=== PATIENT | female | born 1930 | race Caucasian/White ===

== ENCOUNTER 2017-01-30 06:08 | Inpatient (IN) | payer OTHER ==
[2017-01-22 12:09] VITALS: BMI 29.2
--- NOTE | 2017-01-23 11:08 | HP ---
[facility] - Chief Complaint Chief Complaint: left knee pain - Past Medical History Allergies/Adverse Reactions: Allergies Allergy/AdvReac Type Severity Reaction Status Date / Time levofloxacin [From Levaquin] Allergy Verified 01/22/17 11:59 penicillin G Allergy Verified 01/22/17 11:59 Cardiovascular: Yes: HTN Gastrointestinal: Yes: Constipation, Diverticulosis Hepatobiliary: Yes: Other (fatty liver) Renal/: Yes: Renal Inusuff Musculoskeletal: Yes: Chronic low back pain, Osteoarthritis - Current Medications Current Medications: Home Medications Medication Instructions Recorded Simvastatin [Zocor -] 20 mg PO HS 12/27/12 Acetaminophen [Tylenol] 325 mg PO PRN PRN 11/19/15 Benazepril HCl 5 mg PO DAILY 11/19/15 Omeprazole 20 mg PO DAILY PRN 11/19/15 Calcium Carbonate/Vitamin D3 1 each PO DAILY 01/22/17 [Calcium 600 + Vit D Tablet] Diclofenac Sodium 50 mg PO BID PRN 01/22/17 Satellite Physical Exam - Physical Examination General Appearance: Well Nourished, Well Developed, Alert & Oriented x3 ENT: Clear Lung: Normal air movement Heart: Regular rate & rhythm Extremities: Other (left knee- + swelling, + ttp ,decr rom, nvi xrays show severe tricompartmental djd) Neurological: Intact, Alert, Oriented Satellite Impression/Plan - Impression/Plan Impression: left knee djd Operative Procedure: left cindi tkr Date to be Performed: 01/30/17
[2017-01-30] MEDS ORDERED: SODIUM CHLORIDE 0.9% P/F 10 ML VIAL IJ ONE (06:50)
[2017-01-30] MEDS ORDERED: MIDAZOLAM HCL 2 MG/2 ML SINGLE DOSE VIAL ONE (06:50)
[2017-01-30] MEDS ORDERED: BUPIVACAINE HCL/PF (5 MG/ML) 30 ML VIAL IJ ONE (06:50)
[2017-01-30] MEDS ORDERED: DEXAMETHASONE SOD PHOSPHATE/PF 10 MG/ML SDV ONE (06:50)
[2017-01-30] MEDS ORDERED: CEFAZOLIN 2 GM in DEXTROSE 5%-WATER - 50 ML IVPB ONE (06:55)
[2017-01-30] MEDS ORDERED: TRANEXAMIC ACID 1000 MG/10 ML VIAL IVPUSH ONE (06:55)
[2017-01-30] MEDS ORDERED: GABAPENTIN 300 MG CAPSULE (FP) PO ONE (06:55)
[2017-01-30] MEDS ORDERED: CELECOXIB 200 MG CAPSULE PO ONE (06:55)
[2017-01-30] MEDS ORDERED: CELECOXIB 200 MG CAPSULE ONE (06:58)
[2017-01-30] MEDS ORDERED: GABAPENTIN 300 MG CAPSULE (FP) ONE (06:58)
[2017-01-30] MEDS ORDERED: ceFAZolin SODIUM 1 GM VIAL ONE (07:26)
[2017-01-30] MEDS ORDERED: VANCOMYCIN 1,000 MG VIAL (RESTRICTED TO ID ONLY) ONE (07:26)
--- NOTE | 2017-01-30 10:12 | OP ---
Operative Note - Note: Operative Date: 01/30/17 Pre-Operative Diagnosis: left knee djd Operation: left cindi tkr Post-Operative Diagnosis: Same as Pre-op Surgeon: Maulik Pillai Internal Communications Manager: Delma Patel Anesthesiologist/PHYSICAL EDUCATION INSTRUCTOR: David Bob Anesthesia: Spinal Fluid Volume Replaced (mls): 1,000 Operative Report Dictated: Yes
[2017-01-30] MEDS ORDERED: ONDANSETRON 4 MG/2 ML VIAL IVPB PRN (10:13)
[2017-01-30] MEDS ORDERED: MAG HYDROX/AL HYDROX/SIMETH 30 ML UNIT-DOSE CUP PO PRN (10:13)
[2017-01-30] MEDS ORDERED: MAGNESIUM HYDROX 2400MG/30ML ORAL SUSPENSION 30 ML CUP PO PRN (10:13)
--- NOTE | 2017-01-30 10:14 | SURG ---
Surgery Insurance Salesperson Note Insurance Salesperson: Delma Patel PA-C Date of Service: 01/30/17 Diagnosis: left knee djd Procedure: left cindi tkr I was present for the entirety of the operative procedure. For further detail, please refer to operative report. Visit type - Case Type Case Type: Scheduled Admission
[2017-01-30] MEDS ORDERED: LACTATED RINGERS SOLUTION 1,000 ML IV SCH (10:15)
[2017-01-30] MEDS ORDERED: oxyCODONE HCL 5 MG TABLET PO PRN (10:53)
[2017-01-30] MEDS: ACETAMINOPHEN 325 MG TABLET (FP) PO SCH ×2 (12:38→18:42)
[2017-01-30] MEDS: oxyCODONE HCL 5 MG TABLET PO PRN ×2 (16:14→19:17)
[2017-01-30] MEDS: CEFAZOLIN 1 GM/D5W 50 ML IVPB SCH (18:42)
[2017-01-30] MEDS: GABAPENTIN 300 MG CAPSULE (FP) PO SCH (22:00)
[2017-01-30] MEDS: SENNOSIDES/DOCUSATE COMBO (SENNA PLUS) TABLET (UD) PO SCH (22:00)
[2017-01-30] MEDS ORDERED: PATIENT'S OWN MEDICATION (NON-FORMULARY) (Simvastatin 20 MG) PO SCH (22:00)
[2017-01-30] MEDS: ATORVASTATIN CA 10 MG TABLET (FP) PO SCH (22:00)
[2017-01-31] MEDS: ACETAMINOPHEN 325 MG TABLET (FP) PO SCH ×5 (01:49→23:58)
[2017-01-31] MEDS: CEFAZOLIN 1 GM/D5W 50 ML IVPB SCH (01:49)
[2017-01-31] MEDS: oxyCODONE HCL 5 MG TABLET PO PRN ×2 (02:09→21:29)
[2017-01-31] MEDS: ASPIRIN 325 MG TABLET PO SCH (07:47)
[2017-01-31] MEDS: LACTATED RINGERS SOLUTION 1,000 ML IV SCH ×2 (07:49→13:54)
[2017-01-31 08:09] LABS: MCH 31.1 pg (25.7-33.7); MEAN CELL VOLUME 91.4 fl (80-96); MEAN PLT VOLUME 8.5 fl (7.5-11.1); PLATELET COUNT 163 K/MM3 (134-434); WHITE BLOOD COUNT 5.9 K/mm3 (4.0-10.8)
[2017-01-31 08:32] LABS: ANION GAP 9 (8-16); CALCIUM 8.7 mg/dl (8.4-10.2); CO2 23 mmol/L (22-28); CREATININE 1.1 mg/dl (0.6-1.3); GLUCOSE,RANDOM 125 mg/dl (74-106)
--- NOTE | 2017-01-31 09:18 | SPEC ---
DATE OF OPERATION: 01/30/2017 OPERATION: Left total knee replacement with robotic-assisted navigation (MAKOplasty). PREOPERATIVE DIAGNOSIS: Degenerative joint disease, left knee. POSTOPERATIVE DIAGNOSIS: Degenerative joint disease, left knee. SURGEON: Maulik Pillai M.D. FARROWING MANAGER: OSCAR Maynard ANESTHESIA: Regional and spinal. CLOSURE: A Triathlon cemented total knee system with a 3 femur, a 4 tibia, an 11 polyethylene, a 29 patella, and a 100-mm tibial intramedullary chalk molding machine operator. A number 1 Vicryl fascia, 0 and 2-0 for subcutaneous, 3-0 Monocryl subcuticular with skin glue for skin, 4-0 undyed Vicryl for pin sites. ESTIMATED BLOOD LOSS: Negligible. TOURNIQUET TIME: 90 minutes. COMPLICATIONS: None CONDITION: To recovery room in stable condition. DESCRIPTION OF PROCEDURE: Patient was taken to the operating room on January 30, 2017. Regional and spinal anesthesia were administered by the anesthesiologist. IV antibiotics and TXA were administered prophylactically prior to the case. A well-padded pneumatic tourniquet was placed on the left proximal thigh. The left lower extremity was prepped and draped in the usual sterile fashion. An approximately 12-cm midline incision centered over the patella was incised. Hemostasis was achieved with Bovie cautery. Sharp dissection was carried down to the level of the extensor mechanism the procedure. The medial parapatellar arthrotomy was then performed. The patella was inverted and the knee was flexed up to 90 degrees. Subperiosteal dissection was performed on the anteromedial proximal tibia until the knee was able to be brought forward. This was facilitated by taking the ACL, the PCL, and the medial and lateral menisci. A checkpoint was malleted into the medial femoral condyle and into the anteromedial proximal tibia. Through two small stab incisions in the mid femur and two in the mid tibia, two bicortical pins were drilled, achieving excellent height. Two of these pins were attached to the navigation arrays. The knee was then registered with the navigation device by rotating the hip to ascertain the center of rotation of the hip with points on both the medial and lateral malleoli and multiple points on both the femur and on the tibia. Excellent registration was confirmed by "popping the bubbles". At this time, the osteophytes on the edges of the proximal tibia both medially and laterally, as well as on the medial lateral femoral condyles underneath the collateral ligaments were debrided. The knee was stressed in extension and in flexion to confirm good gaps. The virtual positions of the components were then optimized in order to have a balanced knee, both in extension and in 90 degrees of flexion. The sizes of the components were also optimized to get good coverage over both the tibia and the femur and to produce equal gaps in extension and flexion with the appropriate amount of external rotation of the femur, the appropriate amount of flexion of the femoral component and the appropriate slope on the tibial component. At this time, the robot was brought into the field and registered. The robot was used to cut the proximal tibia and to make all the cuts on the distal femur. The bone was then removed. A spacer block in extension and flexion was used to confirm equal balancing of the component in both extension and 90 degrees of flexion. The box for the posterior cruciate sacrificing component was then performed and a trial component on the femur and tibia was applied. The femoral component was clipped into place with the appropriate external rotation. This was confirmed by the navigation device, ensuring the appropriate position of the tibial component on the proximal tibia. The patella was calipered for thickness and osteotomized at the appropriate level. A lollipop was used to drill the three lugholes in the patella and then a trial component was applied. The knee was taken through a range of motion and found to have excellent tracking of the patella from full extension to full flexion, with good stability, varus/valgus throughout range of motion. The trial components were then removed. Before removing the tibial tray, the keyhole was made. The knee was then thoroughly irrigated with antibiotic irrigation. The real components were then cemented in, using modern generation cement techniques with antibiotic cement and pressurization. After the cement was hardened, the knee was thoroughly inspected to remove all excess cement. The real polyethylene component was then clipped into place. Again, range of motion, stability and tracking were found to be excellent throughout. The knee was then pulse antibiotic irrigated and dried. Vancomycin powder was placed into the knee. The checkpoints were removed. The medial parapatellar arthrotomy was then closed using number 1 Vicryl interrupted suture. The knee was again taken through range of motion and found to have no undue tension on the repair and good tracking throughout. The subcutaneous was closed with 0 and 2-0 Vicryl and 3-0 Monocryl subcuticular for skin with skin glue. The pins were removed in the femur and the tibia and pulse antibiotic irrigated and closed with 4-0 undyed Vicryl. Sterile Aquacel dressing followed by a Rendon dressing was applied. The tourniquet was then deflated. One more dose of TXA was administered at the end of the case. The patient was awakened from anesthesia and transferred to the recovery room in stable condition. X-rays revealed good position of the components. There were no complications. Estimated blood loss was negligible. Total tourniquet time was approximately 90 minutes. Oliva KEENAN/[id number]
[2017-01-31] MEDS: LISINOPRIL 5 MG TABLET (FP) PO SCH (09:30)
[2017-01-31] MEDS: GABAPENTIN 300 MG CAPSULE (FP) PO SCH ×2 (09:30→21:29)
[2017-01-31] MEDS: PANTOPRAZOLE 40 MG TABLET (FP) PO SCH (09:30)
[2017-01-31] MEDS: SENNOSIDES/DOCUSATE COMBO (SENNA PLUS) TABLET (UD) PO SCH ×2 (09:30→21:29)
[2017-01-31] MEDS: CALCIUM 500MG/VIT-D 200 UNITS COMBO TABLET (FP) PO SCH (09:30)
[2017-01-31] MEDS: MULTIVITAMINS (DAILY MVI) TABLET (FP) PO SCH (09:30)
[2017-01-31] MEDS ORDERED: BENAZEPRIL HCL 5 MG PO SCH (10:00)
[2017-01-31] MEDS ORDERED: SULFAMETHOXAZOLE/TRIMETHOPRIM 800MG/160MG D.S. TABLET PO SCH (10:00)
[2017-01-31] MEDS: ATORVASTATIN CA 10 MG TABLET (FP) PO SCH (21:29)
--- NOTE | 2017-01-31 21:57 | PN ---
Progress Note (short form) - Note Progress Note: avss comfortable bandages dry and intact calf soft and nt nvi arom 0-95 + straight leg ability imp: doing well plan: pt, dc to home tomorrow
[2017-02-01] MEDS: ACETAMINOPHEN 325 MG TABLET (FP) PO SCH ×2 (06:19→12:16)
[2017-02-01 08:47] LABS: MCH 31.5 pg (25.7-33.7); MCHC 34.1 g/dl (32.0-36.0); MEAN CELL VOLUME 92.2 fl (80-96); MEAN PLT VOLUME 8.9 fl (7.5-11.1); PLATELET COUNT 151 K/MM3 (134-434); WHITE BLOOD COUNT 6.7 K/mm3 (4.0-10.8)
[2017-02-01] MEDS: ASPIRIN 325 MG TABLET PO SCH (09:00)
[2017-02-01 10:07] VITALS: BP 95/43; PULSE 73; TEMP 98.2
[2017-02-01] MEDS: GABAPENTIN 300 MG CAPSULE (FP) PO SCH (10:11)
[2017-02-01] MEDS: CALCIUM 500MG/VIT-D 200 UNITS COMBO TABLET (FP) PO SCH (10:11)
[2017-02-01] MEDS: PANTOPRAZOLE 40 MG TABLET (FP) PO SCH (10:11)
[2017-02-01] MEDS: MULTIVITAMINS (DAILY MVI) TABLET (FP) PO SCH (10:11)
[2017-02-01] MEDS: LISINOPRIL 5 MG TABLET (FP) PO SCH (10:12)
[2017-02-01] MEDS: SENNOSIDES/DOCUSATE COMBO (SENNA PLUS) TABLET (UD) PO SCH (10:12)
[2017-02-01] MEDS: LACTATED RINGERS SOLUTION 1,000 ML IV SCH (12:16)
--- NOTE | 2017-02-03 14:13 | PATH ---
Surgical Pathology Report Patient Name: MIKKI POWELL Med. Rec. #: [id number] /Age/Gender: 1930 (Age: 86) / F Account: [id number] Location: [facility] MED-SURG Taken: 01/30/2017 Received: 01/30/2017 Reported: 02/03/2017 Physicians: Maulik Pillai M.D. Specimen(s) Received BONE LEFT KNEE Clinical History Left knee osteoarthritis Final Diagnosis BONE, LEFT KNEE, TOTAL KNEE REPLACEMENT MAKOPLASTY: CONSISTENT WITH DEGENERATIVE JOINT DISEASE. Electronically Signed Prakash Mcnally M.D. Gross Description The specimen is received in formalin, labeled "bone left knee" are 9.0 x 7.0 x 1.5 cm in aggregate size multiple irregular portions of bone with preserved tibial plateau and femoral condyles, admixed with irregular portions of mancia-yellow soft and tissue. The articular surfaces mancia-ramsey to light yellow with foci of erosions and granularity. The trabecular bone is mancia-yellow and heterogenous Pulmonology Physician sections are submitted in one cassette following decalcification. AF/02/02/2017 final/02/02/2017
== END 2017-02-01 13:12 | disposition home or self-care (01) | DRG 470 ==
LOC: FM/S 06:08
PROVIDERS: ADMIT Orthopaedic Surgery; ATTEND Orthopaedic Surgery
PROC: 8E0Y0CZ Robotic Assisted Procedure of Lower Extremity, Open Approach (ICD-10-PCS; 2017-01-30)
PROC: 0SRD0J9 Replacement of Left Knee Joint with Synthetic Substitute, Cemented, Open Approach (ICD-10-PCS; principal; 2017-01-30 08:34)
DX: M17.12 Unilateral primary osteoarthritis, left knee (principal); M47.9 Spondylosis, unspecified; E78.00 Pure hypercholesterolemia, unspecified; K57.90 Diverticulosis of intestine, part unspecified, without perforation or abscess without bleeding; I12.9 Hypertensive chronic kidney disease with stage 1 through stage 4 chronic kidney disease, or unspecified chronic kidney disease; N18.9 Chronic kidney disease, unspecified; K76.0 Fatty (change of) liver, not elsewhere classified; M88.9 Osteitis deformans of unspecified bone; Z96.651 Presence of right artificial knee joint
CPT/HCPCS: 36415; 73560-TC-LT; 80048; 85027; 88305-TC; 88311-TC; 94010; 94760; 97110-GP; 97116-GP; 97161-GP